=== PATIENT | male | born 1980 | race Two or more races ===

== ENCOUNTER 2017-02-05 19:27 | Emergency (ER) | payer SELFPAY ==
[~2017-02-05] VITALS: Ht 170.2 cm; Wt 107.3 kg
[2017-02-05] MEDS ORDERED: ONDANSETRON 2MG/ML, 2ML IVPush ONE (20:00)
[2017-02-05] MEDS ORDERED: SODIUM CHLORIDE FLUSH 10ML SYR IVF ONE (20:00)
[2017-02-05] MEDS ORDERED: SODIUM CHLORIDE 0.9% 1,000ML IVBOLUS ONE (20:00)
[2017-02-05 20:33] LABS: BLOOD UREA NITROGEN 24 mg/dL (7-18)
[2017-02-05] MEDS ORDERED: ONDANSETRON 2MG/ML, 2ML ONE (20:33)
[2017-02-05] MEDS ORDERED: HYDROmorphone 1 MG/ML, 1ML ONE ×2 (20:33→21:56)
[2017-02-05] MEDS: HYDROmorphone 1 MG/ML, 1ML IVPush PRN ×2 (20:35→22:01)
[2017-02-05 22:25] VITALS: BP 130/84
== END 2017-02-05 23:17 | disposition home or self-care (01) ==
LOC: ED 21:36
DX: S72.8X2A Other fracture of left femur, initial encounter for closed fracture (principal); G89.11 Acute pain due to trauma; X58.XXXA Exposure to other specified factors, initial encounter; Y93.89 Activity, other specified; Y92.89 Other specified places as the place of occurrence of the external cause; Y99.8 Other external cause status
CPT/HCPCS: 36415; 71010; 73700; 80048; 81003; 82040; 85025; 85610; 85730; 96361; 96374; 96375; 96376; 99285; J1170; J2405; J7030